=== PATIENT | male | born 1940 | race Caucasian/White ===

== ENCOUNTER 2016-11-24 13:16 | Inpatient (IN) | payer OTHER ==
[~2016-11-24] VITALS: Ht 177.8 cm; Wt 86.2 kg
[2016-11-24 13:16] VITALS: BP_SYST 173
[~2016-11-24 13:16] MED LIST: ATEN100T44 PO; CARB200T PO; HYDR2TAB34 PO; HYDR4TAB26 PO; LISI40TA4 PO; LYR50 PO; SIMV40TA5 PO; TRIA1TAB96 PO
[2016-11-24] MEDS ORDERED: ALBUTEROL SULFATE 0.083% 2.5 MG/3 ML VIAL.NEB IH ONE (13:45)
[2016-11-24] MEDS ORDERED: IPRATROPIUM BROM 0.5 MG/2.5 ML VIAL.NEB (ATROVENT) IH ONE (13:45)
[2016-11-24 14:00] LABS: BASOPHILS % (AUTO) 0.5 % (0.0-2.0); EOSINOPHILS # (AUTO) 0.1 K/uL (0.0-0.4); EOSINOPHILS % (AUTO) 0.7 % (0.0-4.0); HEMOGLOBIN 14.9 g/dL (14.0-18.0); LYMPHOCYTES # (AUTO) 1.5 K/uL (1.0-5.5); LYMPHOCYTES % (AUTO) 19.5 % (20.5-51.5); MEAN CORPUSCULAR HEMOGLOBIN 28 pg (27-31); MEAN CORPUSCULAR HGB CONC 33 % (32-36); MEAN CORPUSCULAR VOLUME 86 fL (79.0-98.0); MONOCYTES # (AUTO) 0.4 K/uL (0.0-1.0); MONOCYTES % (AUTO) 4.9 % (1.7-9.3); NEUTROPHILS # (AUTO) 5.6 K/uL (1.8-7.7); NEUTROPHILS % (AUTO) 74.4 % (40.0-70.0); PLATELET COUNT (AUTO) 228 K/uL (130-430); RED BLOOD CELL COUNT(AUTO) 5.32 MIL/uL (4.2-6.2); RED CELL DISTRIBUTION WIDTH 13.4 % (9.0-15.0); WHITE BLOOD COUNT (AUTO) 7.6 K/uL (4.8-10.8)
[2016-11-24 14:08] LABS: ANION GAP 8 (5-15); CALCIUM 8.7 mg/dL (8.4-11.0); CHLORIDE 102 mmol/L (98-107); CREATININE 1.24 mg/dL (0.55-1.30); GLUCOSE 117 mg/dL (70-99); POTASSIUM 3.5 mmol/L (3.5-5.1); SODIUM SERUM 135 mmol/L (136-145); UREA NITROGEN, BLOOD 14 mg/dL (8-21)
[2016-11-24 14:12] LABS: ABG TOTAL HEMOGLOBIN 15.7 G/dL (12.0-18.0); BLOOD GAS BASE EXCESS -0.2 mmol/L (-3.0-3.0); BLOOD GAS COHb% 0.8 % (0.5-1.5); BLOOD GAS HHB 6.5 % (0.0-6.0); BLOOD O2Hb% 92.3 % (94.0-97.0)
[2016-11-24 14:13] LABS: ALANINE AMINOTRANSFERASE 22 U/L (12-78); ALBUMIN 3.7 g/dL (3.4-4.8); ASPARTATE AMINOTRANSFERASE 15 U/L (10-37); TOTAL BILIRUBIN 0.5 mg/dL (0.0-1.0); TOTAL PROTEIN, SERUM 7.1 g/dL (6.4-8.3)
[2016-11-24] MEDS ORDERED: OMEP20TA20 PO (15:14)
[2016-11-24] MEDS ORDERED: HYDR-1189 PO (15:14)
[2016-11-24 15:42] VITALS: BP_SYST 156
[2016-11-24 16:00] VITALS: BP_SYST 141
[2016-11-24] MEDS ORDERED: HYDROcodone/ACETAMIN 5-325 MG TAB (NORCO/ VICODIN) PO PRN (19:30)
[2016-11-24] MEDS ORDERED: IPRATROPIUM BROM 0.5 MG/2.5 ML VIAL.NEB (ATROVENT) INH PRN (19:30)
[2016-11-24] MEDS ORDERED: ALBUTEROL SULFATE 0.083% 2.5 MG/3 ML VIAL.NEB INH PRN (19:30)
[2016-11-24 20:00] VITALS: BP_SYST 147
[2016-11-24 20:05] VITALS: BP_SYST 147
[2016-11-24] MEDS: methylPREDNISolone SOD SUCC/PF 62.5 MG/ML VIAL IVP SCH (21:26)
[2016-11-24] MEDS: cefTRIAXone 1 GM IVPB PREMIX 50 ML IV SCH (21:26)
[2016-11-24] MEDS: IPRATROPIUM BROM 0.5 MG/2.5 ML VIAL.NEB (ATROVENT) INH SCH (23:00)
[2016-11-24] MEDS: ALBUTEROL SULFATE 0.083% 2.5 MG/3 ML VIAL.NEB INH SCH (23:00)
[2016-11-25 00:37] VITALS: BP_SYST 121
[2016-11-25] MEDS: ALBUTEROL SULFATE 0.083% 2.5 MG/3 ML VIAL.NEB INH SCH ×4 (03:00→19:45)
[2016-11-25] MEDS: IPRATROPIUM BROM 0.5 MG/2.5 ML VIAL.NEB (ATROVENT) INH SCH ×4 (03:00→19:45)
[2016-11-25] MEDS: methylPREDNISolone SOD SUCC/PF 62.5 MG/ML VIAL IVP SCH ×3 (05:13→22:00)
[2016-11-25 08:24] VITALS: BP_SYST 127
[2016-11-25] MEDS: PANTOPRAZOLE SODIUM 40 MG TAB PO SCH (09:14)
[2016-11-25] MEDS: LISINOPRIL 20 MG TABLET PO SCH (09:15)
[2016-11-25] MEDS: ATENOLOL 50 MG TABLET (TENORMIN) PO SCH (09:15)
[2016-11-25 12:11] VITALS: BP_SYST 131
[2016-11-25 16:00] VITALS: BP_SYST 130
[2016-11-25 20:03] VITALS: BP_SYST 134
[2016-11-25] MEDS: cefTRIAXone 1 GM IVPB PREMIX 50 ML IV SCH (22:00)
[2016-11-26 00:45] VITALS: BP_SYST 92
[2016-11-26 04:32] VITALS: BP_SYST 118
[2016-11-26] MEDS: methylPREDNISolone SOD SUCC/PF 62.5 MG/ML VIAL IVP SCH ×2 (06:43→13:38)
[2016-11-26] MEDS: IPRATROPIUM BROM 0.5 MG/2.5 ML VIAL.NEB (ATROVENT) INH SCH ×3 (07:06→15:00)
[2016-11-26] MEDS: ALBUTEROL SULFATE 0.083% 2.5 MG/3 ML VIAL.NEB INH SCH ×3 (07:06→15:00)
[2016-11-26 08:01] VITALS: BP_SYST 140
[2016-11-26] MEDS: LISINOPRIL 20 MG TABLET PO SCH (08:45)
[2016-11-26] MEDS: PANTOPRAZOLE SODIUM 40 MG TAB PO SCH (08:45)
[2016-11-26] MEDS: ATENOLOL 50 MG TABLET (TENORMIN) PO SCH (08:46)
[2016-11-26 12:00] VITALS: BP_SYST 144
[2016-11-26] MEDS ORDERED: PRED20TA PO (13:51)
[2016-11-26] MEDS ORDERED: PRED10TA PO ×2 (13:52)
[2016-11-26] MEDS ORDERED: FLUT12AE5 IH (13:53)
[2016-11-26] MEDS ORDERED: TIOT18CA3 IH (13:54)
[2016-11-26 14:35] VITALS: BP_SYST 144
[2016-11-26 15:00] VITALS: BP_SYST 159
== END 2016-11-26 15:30 | disposition home or self-care (01) | DRG 192 ==
LOC: SED 13:16 → STU 15:17
PROVIDERS: ADMIT Internal Medicine Hospice and Palliative Medicine; ATTEND Internal Medicine Hospice and Palliative Medicine
DX: J44.1 Chronic obstructive pulmonary disease with (acute) exacerbation (principal); I10 Essential (primary) hypertension; F17.200 Nicotine dependence, unspecified, uncomplicated; E11.9 Type 2 diabetes mellitus without complications; E78.5 Hyperlipidemia, unspecified; Z86.73 Personal history of transient ischemic attack (TIA), and cerebral infarction without residual deficits; Z90.49 Acquired absence of other specified parts of digestive tract; I25.2 Old myocardial infarction; Z79.899 Other long term (current) drug therapy
CPT/HCPCS: 36415; 36600; 71010; 80053; 82803-TC; 83880; 84484; 85025; 85379; 85610-TC; 85730-TC; 93005; 94640; 94760; 99285; J0696; J2930; J7050

== ENCOUNTER 2018-01-28 02:29 | Emergency (ER) | payer OTHER ==
[~2018-01-28] VITALS: Ht 177.8 cm; Wt 83.0 kg
[~2018-01-28 02:29] MED LIST changes: +FLUT12AE5 IH; +HYDR-1189 PO; -HYDR2TAB34 PO; -HYDR4TAB26 PO; -LYR50 PO; +OMEP20TA20 PO; +PRED10TA PO; +PRED20TA PO; -SIMV40TA5 PO; +TIOT18CA3 IH; -TRIA1TAB96 PO
[2018-01-28 02:34] VITALS: BP_SYST 135
[2018-01-28] MEDS ORDERED: fentaNYL CITRATE/PF 100 MCG/2 ML AMP IM ONE (03:15)
[2018-01-28] MEDS ORDERED: LORazepam 2 MG/ML VIAL (FOR ER USE) IM ONE (03:15)
[2018-01-28 05:06] VITALS: BP_SYST 138
== END 2018-01-28 05:06 | disposition home or self-care (01) ==
LOC: SED 02:29
DX: G89.29 Other chronic pain (principal); G50.0 Trigeminal neuralgia; J44.9 Chronic obstructive pulmonary disease, unspecified; I10 Essential (primary) hypertension; E78.5 Hyperlipidemia, unspecified; Z79.899 Other long term (current) drug therapy
CPT/HCPCS: 93005; 96372; 99284; J2060; J3010

== ENCOUNTER 2018-04-17 12:58 | Emergency (ER) | payer OTHER ==
[~2018-04-17] VITALS: Ht 177.8 cm; Wt 85.7 kg
[~2018-04-17 12:58] MED LIST changes: +ATEN-168 PO; -ATEN100T44 PO
[2018-04-17 13:22] VITALS: BP_SYST 103
[2018-04-17] MEDS ORDERED: ONDANSETRON 4 MG ODT TAB PO ONE (13:45)
[2018-04-17] MEDS ORDERED: MORPHINE 4 MG/ML INJ. SYRINGE IM ONE (13:45)
[2018-04-17 14:34] VITALS: BP_SYST 116
== END 2018-04-17 14:34 | disposition home or self-care (01) ==
LOC: SED 12:58
DX: G89.29 Other chronic pain (principal); G50.0 Trigeminal neuralgia; R53.1 Weakness; J44.9 Chronic obstructive pulmonary disease, unspecified; I10 Essential (primary) hypertension; E78.5 Hyperlipidemia, unspecified; Z90.49 Acquired absence of other specified parts of digestive tract; Z79.899 Other long term (current) drug therapy
CPT/HCPCS: 96372; 99283; J2270; Q0162

== ENCOUNTER 2019-07-05 20:06 | Emergency (ER) | payer OTHER ==
[~2019-07-05] VITALS: Ht 177.8 cm; Wt 86.2 kg
[2019-07-05 20:29] VITALS: BP_SYST 117
--- NOTE | 2019-07-05 20:31 | NUR ---
Patient to ER bed 08 to gown for evaluation. Side rails up. Report given to ANTONI SPEARS
[2019-07-05] MEDS ORDERED: NACL 0.9% 1,000 ML IV ONE (20:46)
--- NOTE | 2019-07-05 20:47 | NUR ---
ER Dr. Tello at bedside examining patient.
--- NOTE | 2019-07-05 20:55 | NUR ---
Pt BIB family to ED C/O non-bloody, watery diarrhea for 5 days. He denies any alleviating or exacerbating factors. The patient states he had diarrhea 5 days ago but not 4 days ago but states diarrhea came back. Per patient, the patient had vomiting earlier this week 4 and 5 days ago but now has dry heaving. Per patient, his 4 year old baby had diarrhea before him VSS no s/s of acute distress. No other injuries and or complaints noted Resting on gurney rails up
[2019-07-05] MEDS ORDERED: ONDANSETRON HCL 4 MG/2 ML VIAL IVP ONE (21:00)
[2019-07-05 21:30] LABS: BASOPHILS % (AUTO) 0.5 % (0.0-2.0); EOSINOPHILS # (AUTO) 0.1 K/uL (0.0-0.4); EOSINOPHILS % (AUTO) 1.8 % (0.0-4.0); HEMATOCRIT 52.3 % (36-54); HEMOGLOBIN 18.1 g/dL (14.0-18.0); LYMPHOCYTES # (AUTO) 1.5 K/uL (1.0-5.5); MEAN CORPUSCULAR HEMOGLOBIN 30 pg (27-31); MEAN CORPUSCULAR HGB CONC 35 % (32-36); MEAN CORPUSCULAR VOLUME 88 fL (79.0-98.0); MONOCYTES % (AUTO) 12.7 % (1.7-9.3); PLATELET COUNT (AUTO) 248 K/uL (130-430); RED BLOOD CELL COUNT(AUTO) 5.97 MIL/uL (4.2-6.2); RED CELL DISTRIBUTION WIDTH 15.9 % (9.0-15.0); WHITE BLOOD COUNT (AUTO) 7.6 K/uL (4.8-10.8)
[2019-07-05 21:38] LABS: ANION GAP 14 (5-15); CALCIUM 8.1 mg/dL (8.4-11.0); CHLORIDE 97 mmol/L (98-107); CREATININE 1.28 mg/dL (0.55-1.30); GLUCOSE 96 mg/dL (70-99); SODIUM SERUM 135 mmol/L (136-145); UREA NITROGEN, BLOOD 24 mg/dL (8-21)
[2019-07-05 21:56] LABS: ALANINE AMINOTRANSFERASE 27 U/L (12-78); ALBUMIN 3.6 g/dL (3.4-4.8); ASPARTATE AMINOTRANSFERASE 19 U/L (10-37); TOTAL BILIRUBIN 0.4 mg/dL (0.0-1.0)
--- NOTE | 2019-07-05 22:06 | NUR ---
Patient up to restroom for bowel movement.
--- NOTE | 2019-07-05 22:14 | NUR ---
patient back to bed
[2019-07-05] MEDS ORDERED: POTASSIUM CHLORIDE 20 MEQ TAB.PRT.SR PO ONE (22:30)
[2019-07-05 23:00] VITALS: BP_SYST 117
--- NOTE | 2019-07-05 23:00 | NUR ---
Patient given written and verbal discharge instructions and verbalizes understanding. ER MD discussed with patient the results and treatment provided. Patient in stable condition. ID arm band removed. IV catheter removed intact and dressing applied, no active bleeding Rx of Zofran and Levaquin given. Patient educated on pain management and to follow up with PMD. Pain Scale 0/10 Opportunity for questions provided and answered. Medication side effect fact sheet provided.
== END 2019-07-05 23:00 | disposition home or self-care (01) ==
LOC: SED 20:06
DX: E87.6 Hypokalemia (principal); R19.7 Diarrhea, unspecified; R11.0 Nausea; I10 Essential (primary) hypertension; E78.00 Pure hypercholesterolemia, unspecified; J44.9 Chronic obstructive pulmonary disease, unspecified
CPT/HCPCS: 36415; 80053; 83605; 85025; 87040; 96365; 96375; 99283; J1956; J2405; J7030

== ENCOUNTER 2021-12-28 12:51 | Emergency (ER) | payer OTHER ==
[~2021-12-28] VITALS: Ht 177.8 cm; Wt 74.8 kg
[~2021-12-28 12:51] MED LIST changes: -HYDR-1189 PO; +HYDR-3919 PO; +LISI40TA13 PO; -LISI40TA4 PO
[2021-12-28 13:12] VITALS: BP_SYST 124
[2021-12-28 15:35] LABS: ANION GAP 8 (5-15); CALCIUM 7.8 mg/dL (8.4-11.0); CHLORIDE 105 mmol/L (98-107); CREATININE 1.52 mg/dL (0.55-1.30); GLUCOSE 129 mg/dL (70-99); SODIUM SERUM 142 mmol/L (136-145); UREA NITROGEN, BLOOD 33 mg/dL (8-21)
[2021-12-28 15:39] LABS: BASOPHILS % (AUTO) 0.4 % (0.0-2.0); EOSINOPHILS % (AUTO) 0.5 % (0.0-4.0); HEMATOCRIT 41.4 % (36-54); HEMOGLOBIN 13.8 g/dL (14.0-18.0); LYMPHOCYTES # (AUTO) 1.1 K/uL (1.0-5.5); LYMPHOCYTES % (AUTO) 30.2 % (20.5-51.5); MEAN CORPUSCULAR HEMOGLOBIN 28 pg (27-31); MEAN CORPUSCULAR HGB CONC 33 % (32-36); MEAN CORPUSCULAR VOLUME 83 fL (79.0-98.0); MONOCYTES # (AUTO) 0.3 K/uL (0.0-1.0); MONOCYTES % (AUTO) 7.4 % (1.7-9.3); NEUTROPHILS # (AUTO) 2.1 K/uL (1.8-7.7); NEUTROPHILS % (AUTO) 61.5 % (40.0-70.0); PLATELET COUNT (AUTO) 100 K/uL (130-430); RED BLOOD CELL COUNT(AUTO) 4.96 MIL/uL (4.2-6.2); RED CELL DISTRIBUTION WIDTH 33.2 % (9.0-15.0); WHITE BLOOD COUNT (AUTO) 3.5 K/uL (4.8-10.8)
[2021-12-28 15:47] LABS: ALANINE AMINOTRANSFERASE 48 U/L (12-78); ASPARTATE AMINOTRANSFERASE 18 U/L (10-37); TOTAL BILIRUBIN 0.4 mg/dL (0.0-1.0)
[2021-12-28 16:17] LABS: ERYTHROCYTE SEDIMENTATION RATE 7 MM/HR (0-15)
[2021-12-28 16:19] LABS: PROTHROMBIN TIME 10.4 SECS (9.5-12.5)
[2021-12-28 16:38] VITALS: BP_SYST 124
[2021-12-28 17:04] LABS: C-REACTIVE PROTEIN QUANT < 0.2 mg/dL (0-0.5)
== END 2021-12-28 16:38 | disposition home or self-care (01) ==
LOC: SED 12:51
DX: L60.8 Other nail disorders (principal); I10 Essential (primary) hypertension; J44.9 Chronic obstructive pulmonary disease, unspecified; Z88.8 Allergy status to other drugs, medicaments and biological substances; Z79.899 Other long term (current) drug therapy
CPT/HCPCS: 36415; 80053; 83605; 85025; 85610-TC; 85651-TC; 85730-TC; 86140; 99283

== ENCOUNTER 2023-06-30 18:44 | Inpatient (IN) | payer OTHER ==
[~2023-06-30] VITALS: Ht 177.8 cm; Wt 85.7 kg
[2023-06-30 18:54] VITALS: BP_SYST 145; PULSE 89; RESP 20; O2SAT 93
[2023-06-30] MEDS ORDERED: cefTRIAXone 1 GM IVPB PREMIX 50 ML IV ONE (20:00)
[2023-06-30] MEDS ORDERED: ASPIRIN 81 MG TAB.CHEW PO ONE (20:00)
[2023-06-30] MEDS ORDERED: DEXAMETHASONE SOD PHOSPHATE 4 MG/ML VIAL IVP ONE (20:00)
[2023-06-30 20:02] LABS: INFLUENZA TYPE A Negative (NEGATIVE)
[2023-06-30 20:13] LABS: COVID19 ANTIGEN SOFIA FIA POSITIVE (NEGATIVE); INFLUENZA TYPE B POSITIVE (NEGATIVE)
[2023-06-30] MEDS ORDERED: OSELTAMIVIR PHOSPHATE 75 MG CAPSULE PO ONE (20:15)
[2023-06-30 20:52] LABS: LYMPHOCYTES # (AUTO) 0.4 K/uL (1.0-5.5)
[2023-06-30 20:57] LABS: BASOPHILS # (AUTO) 0.1 K/uL (0.0-0.2); BASOPHILS % (AUTO) 0.6 % (0.0-2.0); HEMATOCRIT 51.9 % (36-54); HEMOGLOBIN 16.3 g/dL (14.0-18.0); LYMPHOCYTES % (AUTO) 2.8 % (20.5-51.5); MEAN CORPUSCULAR HEMOGLOBIN 24 pg (27-31); MEAN CORPUSCULAR HGB CONC 31 % (32-36); MEAN CORPUSCULAR VOLUME 77 fL (79.0-98.0); MONOCYTES # (AUTO) 0.4 K/uL (0.0-1.0); NEUTROPHILS % (AUTO) 93.6 % (40.0-70.0); PLATELET COUNT (AUTO) 519 K/uL (130-430); RED BLOOD CELL COUNT(AUTO) 6.73 MIL/uL (4.2-6.2); RED CELL DISTRIBUTION WIDTH 21.7 % (9.0-15.0); WHITE BLOOD COUNT (AUTO) 14.9 K/uL (4.8-10.8)
[2023-06-30] MEDS ORDERED: IPRATROPIUM/ALBUTEROL SULFATE 3 ML AMPUL.NEB (DUONEB) INH ONE (21:00)
[2023-06-30 21:04] LABS: ALANINE AMINOTRANSFERASE 30 U/L (12-78); ALBUMIN 3.2 g/dL (3.4-4.8); ANION GAP 12 (5-15); ASPARTATE AMINOTRANSFERASE 23 U/L (10-37); BILIRUBIN,DIRECT 0.3 mg/dL (0.0-0.3); CALCIUM 8.4 mg/dL (8.4-11.0); CARBON DIOXIDE 26 mmol/L (23-29); CHLORIDE 100 mmol/L (98-107); CREATININE 1.37 mg/dL (0.55-1.30); GLUCOSE 110 mg/dL (74-106); SODIUM SERUM 138 mmol/L (136-145); TOTAL BILIRUBIN 0.8 mg/dL (0.0-1.0); TOTAL PROTEIN, SERUM 6.7 g/dL (6.4-8.3); UREA NITROGEN, BLOOD 28 mg/dL (8-21)
[2023-06-30 21:06] LABS: POTASSIUM 2.8 mmol/L (3.5-5.1)
[2023-06-30] MEDS ORDERED: ONDANSETRON HCL 4 MG/2 ML VIAL IVP PRN (21:45)
[2023-06-30] MEDS ORDERED: NACL 0.9% 1,000 ML IV SCH (21:45)
[2023-06-30] MEDS ORDERED: ACETAMINOPHEN 325 MG TABLET PO PRN (21:45)
[2023-06-30] MEDS ORDERED: HYDROcodone/ACETAMIN 5-325 MG TAB (NORCO/ VICODIN) PO PRN (21:45)
[2023-06-30] MEDS ORDERED: ENOXAPARIN SODIUM 30 MG/0.3 ML SYRINGE SUBCUT ONE (22:00)
[2023-06-30] MEDS ORDERED: POTASSIUM CHLORIDE 20 MEQ TABLET.ER PO ONE (22:00)
[2023-06-30 23:30] VITALS: BP_SYST 145; PULSE 89; O2SAT 95
[2023-06-30] MEDS: ALBUTEROL SULFATE 0.083% 2.5 MG/3 ML VIAL.NEB INH SCH (23:40)
[2023-06-30 23:41] VITALS: PULSE 66
[2023-06-30 23:44] VITALS: O2SAT 98
[2023-06-30 23:45] VITALS: BP_SYST 113; PULSE 84; RESP 18; TEMP 98.6; O2SAT 93
[2023-07-01] VITALS (10 sets, daily range): BP systolic 82–119; PULSE 65–84; RESP 16–20; TEMP 95.8–98.6; O2SAT 88–96
[2023-07-01] MEDS: ALBUTEROL SULFATE 0.083% 2.5 MG/3 ML VIAL.NEB INH SCH ×6 (04:37→23:00)
[2023-07-01 06:39] LABS: ALANINE AMINOTRANSFERASE 25 U/L (12-78); ALBUMIN 3.1 g/dL (3.4-4.8); ANION GAP 15 (5-15); ASPARTATE AMINOTRANSFERASE 20 U/L (10-37); CALCIUM 8.9 mg/dL (8.4-11.0); CARBON DIOXIDE 25 mmol/L (23-29); CHLORIDE 100 mmol/L (98-107); CREATININE 1.63 mg/dL (0.55-1.30); GLUCOSE 169 mg/dL (74-106); SODIUM SERUM 140 mmol/L (136-145); TOTAL BILIRUBIN 0.6 mg/dL (0.0-1.0); TOTAL PROTEIN, SERUM 6.7 g/dL (6.4-8.3); UREA NITROGEN, BLOOD 28 mg/dL (8-21)
[2023-07-01 07:02] LABS: POTASSIUM 2.7 mmol/L (3.5-5.1)
[2023-07-01 07:15] LABS: HEMATOCRIT 51.7 % (36-54); HEMOGLOBIN 16.2 g/dL (14.0-18.0); MEAN CORPUSCULAR HEMOGLOBIN 24 pg (27-31); MEAN CORPUSCULAR HGB CONC 31 % (32-36); MEAN CORPUSCULAR VOLUME 77 fL (79.0-98.0); PLATELET COUNT (AUTO) 503 K/uL (130-430); RED BLOOD CELL COUNT(AUTO) 6.73 MIL/uL (4.2-6.2); RED CELL DISTRIBUTION WIDTH 21.7 % (9.0-15.0)
[2023-07-01] MEDS: DEXAMETHASONE SOD PHOSPHATE 4 MG/ML VIAL IVP SCH (09:44)
[2023-07-01] MEDS: ASPIRIN 81 MG TAB.CHEW PO SCH (09:44)
[2023-07-01] MEDS: OSELTAMIVIR PHOSPHATE 75 MG CAPSULE PO SCH ×2 (09:44→20:57)
[2023-07-01 10:00] LABS: ANISOCYTOSIS 1+; BAND % (MANUAL) 14 % (0-6); BASOPHILS % (MANUAL) 0 % (0-2); EOSINOPHILS % (MANUAL) 0 % (0-7); HYPOCHROMASIA 1+; LYMPHOCYTES % (MANUAL) 1 % (20-46); METAMYELOCYTES % 1 % (0-0); MONOCYTES % (MANUAL) 1 % (0-11)
[2023-07-01 10:01] LABS: PLATELET ESTIMATE INCREASED (ADEQUATE)
[2023-07-01] MEDS ORDERED: ASCORBIC ACID 500 MG TABLET PO ONE (10:30)
[2023-07-01] MEDS ORDERED: POTASSIUM CHLORIDE 40 MEQ in NS 250 ML IV ONE (11:00)
[2023-07-01] MEDS: NACL 0.9% 1,000 ML IV SCH (13:33)
[2023-07-01 16:27] LABS: BASOPHILS % (AUTO) 0.1 % (0.0-2.0); HEMATOCRIT 48.5 % (36-54); HEMOGLOBIN 15.3 g/dL (14.0-18.0); LYMPHOCYTES # (AUTO) 0.4 K/uL (1.0-5.5); LYMPHOCYTES % (AUTO) 2.4 % (20.5-51.5); MEAN CORPUSCULAR HEMOGLOBIN 24 pg (27-31); MEAN CORPUSCULAR HGB CONC 32 % (32-36); MEAN CORPUSCULAR VOLUME 76 fL (79.0-98.0); MONOCYTES # (AUTO) 0.3 K/uL (0.0-1.0); MONOCYTES % (AUTO) 1.6 % (1.7-9.3); NEUTROPHILS # (AUTO) 17.6 K/uL (1.8-7.7); NEUTROPHILS % (AUTO) 95.9 % (40.0-70.0); PLATELET COUNT (AUTO) 549 K/uL (130-430); RED BLOOD CELL COUNT(AUTO) 6.37 MIL/uL (4.2-6.2); RED CELL DISTRIBUTION WIDTH 21.5 % (9.0-15.0); WHITE BLOOD COUNT (AUTO) 18.3 K/uL (4.8-10.8)
[2023-07-01 16:37] LABS: ANION GAP 10 (5-15); CALCIUM 8.8 mg/dL (8.4-11.0); CARBON DIOXIDE 24 mmol/L (23-29); CHLORIDE 103 mmol/L (98-107); CREATININE 1.63 mg/dL (0.55-1.30); GLUCOSE 171 mg/dL (74-106); POTASSIUM 3.3 mmol/L (3.5-5.1); SODIUM SERUM 137 mmol/L (136-145); UREA NITROGEN, BLOOD 39 mg/dL (8-21)
[2023-07-01] MEDS ORDERED: TAMS-11 PO (18:05)
[2023-07-01] MEDS ORDERED: APIX5TAB PO ×2 (18:13→18:38)
[2023-07-01] MEDS ORDERED: CLOP75TA32 PO (18:19)
[2023-07-01] MEDS ORDERED: MONT-40 PO (18:24)
[2023-07-01] MEDS ORDERED: NEU300 PO (18:26)
[2023-07-01] MEDS ORDERED: FAMO20TA8 PO (18:27)
[2023-07-01] MEDS ORDERED: EZET10TA30 PO (18:40)
[2023-07-02] VITALS (12 sets, daily range): BP systolic 114–144; PULSE 72–89; RESP 16–20; TEMP 97.3–98.1; O2SAT 90–98
[2023-07-02] MEDS: NACL 0.9% 1,000 ML IV SCH ×2 (00:20→21:18)
[2023-07-02] MEDS: HYDROcodone/ACETAMIN 10-325 MG TAB PO PRN ×2 (00:20→21:15)
[2023-07-02] MEDS: ALBUTEROL SULFATE 0.083% 2.5 MG/3 ML VIAL.NEB INH SCH ×6 (03:00→23:15)
[2023-07-02 07:17] LABS: BASOPHILS % (AUTO) 0.1 % (0.0-2.0); HEMATOCRIT 49.4 % (36-54); HEMOGLOBIN 15.6 g/dL (14.0-18.0); LYMPHOCYTES # (AUTO) 0.5 K/uL (1.0-5.5); LYMPHOCYTES % (AUTO) 2.5 % (20.5-51.5); MEAN CORPUSCULAR HEMOGLOBIN 24 pg (27-31); MEAN CORPUSCULAR HGB CONC 32 % (32-36); MEAN CORPUSCULAR VOLUME 76 fL (79.0-98.0); MONOCYTES # (AUTO) 0.6 K/uL (0.0-1.0); MONOCYTES % (AUTO) 2.6 % (1.7-9.3); NEUTROPHILS % (AUTO) 94.8 % (40.0-70.0); PLATELET COUNT (AUTO) 575 K/uL (130-430); RED BLOOD CELL COUNT(AUTO) 6.46 MIL/uL (4.2-6.2); RED CELL DISTRIBUTION WIDTH 21.7 % (9.0-15.0); WHITE BLOOD COUNT (AUTO) 22.1 K/uL (4.8-10.8)
[2023-07-02 07:43] LABS: ALANINE AMINOTRANSFERASE 26 U/L (12-78); ALBUMIN 2.9 g/dL (3.4-4.8); ANION GAP 13 (5-15); ASPARTATE AMINOTRANSFERASE 23 U/L (10-37); CALCIUM 8.9 mg/dL (8.4-11.0); CARBON DIOXIDE 23 mmol/L (23-29); CHLORIDE 104 mmol/L (98-107); CREATININE 1.32 mg/dL (0.55-1.30); GLUCOSE 127 mg/dL (74-106); SODIUM SERUM 140 mmol/L (136-145); TOTAL BILIRUBIN 0.5 mg/dL (0.0-1.0); TOTAL PROTEIN, SERUM 6.2 g/dL (6.4-8.3); UREA NITROGEN, BLOOD 36 mg/dL (8-21)
[2023-07-02 09:05] LABS: BILIRUBIN,URINE NEGATIVE (NEGATIVE); BLOOD, URINE 2+ (NEGATIVE); CLARITY/URINE SL CLOUDY (CLEAR); COLOR,URINE YELLOW (YELLOW); GLUCOSE,URINE NEGATIVE (NEGATIVE); KETONES,URINE NEGATIVE (NEGATIVE); LEUKOCYTE ESTERASE ,URINE NEGATIVE (NEGATIVE); NITRITE, URINE NEGATIVE (NEGATIVE); PROTEIN URINE NEGATIVE (NEGATIVE); UROBILINOGEN,URINE 0.2 (0.2-1.0)
[2023-07-02] MEDS: cefTRIAXone 1 GM in D5W 50 ML IV SCH (09:19)
[2023-07-02] MEDS: ASPIRIN 81 MG TAB.CHEW PO SCH (09:39)
[2023-07-02] MEDS: DEXAMETHASONE SOD PHOSPHATE 4 MG/ML VIAL IVP SCH (09:40)
[2023-07-02] MEDS: ASCORBIC ACID 500 MG TABLET PO SCH (09:40)
[2023-07-02] MEDS: OSELTAMIVIR PHOSPHATE 75 MG CAPSULE PO SCH ×2 (09:40→21:15)
[2023-07-02 09:49] LABS: BACTERIA,URINE RARE /HPF (None Seen); WBC,URINE 0-3 /HPF (0-3)
[2023-07-02] MEDS ORDERED: KCL 20 mEq in 100 mL (PREMIX) 200 ML IV ONE (11:00)
[2023-07-02] MEDS: AZITHROMYCIN 250 MG in NS 250 ML IV SCH (11:24)
[2023-07-02] MEDS ORDERED: FAMOTIDINE 20 MG TABLET PO ONE (11:45)
[2023-07-02] MEDS ORDERED: TAMSULOSIN HCL 0.4 MG CAP PO ONE (11:45)
[2023-07-02] MEDS ORDERED: GABAPENTIN 300 MG CAPSULE PO ONE (11:45)
[2023-07-02] MEDS ORDERED: APIXABAN 2.5 MG TABLET PO ONE (11:45)
[2023-07-02] MEDS: EZETIMIBE 10 MG TABLET PO SCH (16:41)
[2023-07-02 17:50] LABS: URINE SODIUM, RANDOM 37 mmol/L (40-220)
[2023-07-02] MEDS: APIXABAN 2.5 MG TABLET PO SCH (21:16)
[2023-07-03] VITALS (10 sets, daily range): BP systolic 106–135; PULSE 73–84; RESP 17–19; TEMP 97.1–98.6; O2SAT 90–97
[2023-07-03] MEDS: ALBUTEROL SULFATE 0.083% 2.5 MG/3 ML VIAL.NEB INH SCH ×5 (03:00→20:05)
[2023-07-03 04:31] LABS: BASOPHILS % (AUTO) 0.1 % (0.0-2.0); HEMATOCRIT 48.2 % (36-54); HEMOGLOBIN 15.1 g/dL (14.0-18.0); LYMPHOCYTES # (AUTO) 0.2 K/uL (1.0-5.5); LYMPHOCYTES % (AUTO) 1.2 % (20.5-51.5); MEAN CORPUSCULAR HEMOGLOBIN 24 pg (27-31); MEAN CORPUSCULAR HGB CONC 31 % (32-36); MEAN CORPUSCULAR VOLUME 77 fL (79.0-98.0); MONOCYTES # (AUTO) 0.4 K/uL (0.0-1.0); MONOCYTES % (AUTO) 1.9 % (1.7-9.3); NEUTROPHILS # (AUTO) 19.4 K/uL (1.8-7.7); NEUTROPHILS % (AUTO) 96.8 % (40.0-70.0); PLATELET COUNT (AUTO) 577 K/uL (130-430); RED BLOOD CELL COUNT(AUTO) 6.26 MIL/uL (4.2-6.2); RED CELL DISTRIBUTION WIDTH 21.7 % (9.0-15.0); WHITE BLOOD COUNT (AUTO) 20.1 K/uL (4.8-10.8)
[2023-07-03 04:49] LABS: ALANINE AMINOTRANSFERASE 26 U/L (12-78); ALBUMIN 2.7 g/dL (3.4-4.8); ANION GAP 11 (5-15); ASPARTATE AMINOTRANSFERASE 21 U/L (10-37); CALCIUM 8.7 mg/dL (8.4-11.0); CARBON DIOXIDE 25 mmol/L (23-29); CHLORIDE 101 mmol/L (98-107); CREATININE 1.21 mg/dL (0.55-1.30); GLUCOSE 108 mg/dL (74-106); POTASSIUM 3.3 mmol/L (3.5-5.1); SODIUM SERUM 137 mmol/L (136-145); TOTAL BILIRUBIN 0.5 mg/dL (0.0-1.0); TOTAL PROTEIN, SERUM 5.9 g/dL (6.4-8.3); UREA NITROGEN, BLOOD 30 mg/dL (8-21)
[2023-07-03] MEDS: NACL 0.9% 1,000 ML IV SCH ×3 (05:55→18:50)
[2023-07-03] MEDS: DEXAMETHASONE SOD PHOSPHATE 4 MG/ML VIAL IVP SCH (09:36)
[2023-07-03] MEDS: ASCORBIC ACID 500 MG TABLET PO SCH (09:36)
[2023-07-03] MEDS: FAMOTIDINE 20 MG TABLET PO SCH (09:37)
[2023-07-03] MEDS: GABAPENTIN 300 MG CAPSULE PO SCH (09:37)
[2023-07-03] MEDS: TAMSULOSIN HCL 0.4 MG CAP PO SCH (09:37)
[2023-07-03] MEDS: OSELTAMIVIR PHOSPHATE 75 MG CAPSULE PO SCH ×2 (09:37→20:53)
[2023-07-03] MEDS: cefTRIAXone 1 GM in D5W 50 ML IV SCH (09:38)
[2023-07-03] MEDS: APIXABAN 2.5 MG TABLET PO SCH (09:40)
[2023-07-03] MEDS: AZITHROMYCIN 250 MG in NS 250 ML IV SCH (12:26)
[2023-07-03 14:40] LABS: INR 1.3 (0.80-1.20); PROTHROMBIN TIME 13.1 SECS (9.5-12.5)
[2023-07-03] MEDS: EZETIMIBE 10 MG TABLET PO SCH (17:23)
[2023-07-03] MEDS: HYDROcodone/ACETAMIN 10-325 MG TAB PO PRN (20:54)
[2023-07-03] MEDS ORDERED: APIXABAN 2.5 MG TABLET PO SCH (21:00)
[2023-07-04 00:32] VITALS: BP_SYST 110; PULSE 72; RESP 19; TEMP 97.8; O2SAT 94
[2023-07-04 03:30] VITALS: O2SAT 93
[2023-07-04] MEDS: ALBUTEROL SULFATE 0.083% 2.5 MG/3 ML VIAL.NEB INH SCH ×3 (03:37→11:48)
[2023-07-04 05:35] LABS: BASOPHILS % (AUTO) 0.1 % (0.0-2.0); HEMATOCRIT 49.4 % (36-54); HEMOGLOBIN 15.6 g/dL (14.0-18.0); LYMPHOCYTES # (AUTO) 0.4 K/uL (1.0-5.5); LYMPHOCYTES % (AUTO) 2.5 % (20.5-51.5); MEAN CORPUSCULAR HEMOGLOBIN 24 pg (27-31); MEAN CORPUSCULAR HGB CONC 32 % (32-36); MEAN CORPUSCULAR VOLUME 77 fL (79.0-98.0); MONOCYTES # (AUTO) 0.4 K/uL (0.0-1.0); MONOCYTES % (AUTO) 2.6 % (1.7-9.3); NEUTROPHILS # (AUTO) 13.9 K/uL (1.8-7.7); PLATELET COUNT (AUTO) 540 K/uL (130-430); RED BLOOD CELL COUNT(AUTO) 6.43 MIL/uL (4.2-6.2); RED CELL DISTRIBUTION WIDTH 22.3 % (9.0-15.0); WHITE BLOOD COUNT (AUTO) 14.7 K/uL (4.8-10.8)
[2023-07-04 06:05] LABS: ALANINE AMINOTRANSFERASE 27 U/L (12-78); ALBUMIN 2.6 g/dL (3.4-4.8); ANION GAP 10 (5-15); ASPARTATE AMINOTRANSFERASE 21 U/L (10-37); CALCIUM 8.9 mg/dL (8.4-11.0); CARBON DIOXIDE 26 mmol/L (23-29); CHLORIDE 104 mmol/L (98-107); CREATININE 1.07 mg/dL (0.55-1.30); GLUCOSE 111 mg/dL (74-106); POTASSIUM 3.3 mmol/L (3.5-5.1); SODIUM SERUM 140 mmol/L (136-145); TOTAL BILIRUBIN 0.6 mg/dL (0.0-1.0); UREA NITROGEN, BLOOD 30 mg/dL (8-21)
[2023-07-04] MEDS: NACL 0.9% 1,000 ML IV SCH ×2 (06:42→11:07)
[2023-07-04 07:18] LABS: NEUTROPHILS % (AUTO) 94.8 % (40.0-70.0)
[2023-07-04 08:00] VITALS: BP_SYST 144; PULSE 79; RESP 16; TEMP 98; O2SAT 92
[2023-07-04] MEDS: cefTRIAXone 1 GM in D5W 50 ML IV SCH (10:36)
[2023-07-04] MEDS: OSELTAMIVIR PHOSPHATE 75 MG CAPSULE PO SCH (10:37)
[2023-07-04] MEDS: ASCORBIC ACID 500 MG TABLET PO SCH (10:37)
[2023-07-04] MEDS: GABAPENTIN 300 MG CAPSULE PO SCH (10:37)
[2023-07-04] MEDS: FAMOTIDINE 20 MG TABLET PO SCH (10:37)
[2023-07-04] MEDS: TAMSULOSIN HCL 0.4 MG CAP PO SCH (10:37)
[2023-07-04] MEDS: AZITHROMYCIN 250 MG in NS 250 ML IV SCH (11:06)
[2023-07-04 11:40] VITALS: O2SAT 92
[2023-07-04] MEDS ORDERED: AMOX-423 PO (12:05)
[2023-07-04] MEDS ORDERED: ASC500 PO (12:05)
[2023-07-04] MEDS ORDERED: OSEL75CA PO (12:05)
[2023-07-04 12:43] VITALS: BP_SYST 111; PULSE 75; RESP 18; TEMP 97.7; O2SAT 97
[2023-07-04 15:33] VITALS: BP_SYST 144; PULSE 79; RESP 16; TEMP 98; O2SAT 94
[2023-07-04] MEDS ORDERED: APIX2.5T PO (16:00)
== END 2023-07-04 16:10 | disposition home health service (06) | DRG 177 ==
LOC: SED 18:44 → STU 21:44
PROVIDERS: ADMIT Family Medicine; ATTEND Family Medicine
PROC: XW043E5 Introduction of Remdesivir Anti-infective into Central Vein, Percutaneous Approach, New Technology Group 5 (ICD-10-PCS; principal; 2023-07-02)
DX: U07.1 COVID-19 (principal); J96.01 Acute respiratory failure with hypoxia; N17.0 Acute kidney failure with tubular necrosis; E44.1 Mild protein-calorie malnutrition; I25.10 Atherosclerotic heart disease of native coronary artery without angina pectoris; E87.6 Hypokalemia; D75.839 Thrombocytosis, unspecified; D72.829 Elevated white blood cell count, unspecified; E86.9 Volume depletion, unspecified; F17.200 Nicotine dependence, unspecified, uncomplicated; R58 Hemorrhage, not elsewhere classified; J10.1 Influenza due to other identified influenza virus with other respiratory manifestations; Z91.09 Other allergy status, other than to drugs and biological substances; Z79.899 Other long term (current) drug therapy; Z79.891 Long term (current) use of opiate analgesic; Z68.27 Body mass index [BMI] 27.0-27.9, adult
CPT/HCPCS: 36415; 71045; 80048; 80053; 80076; 81000; 81001; 81015; 82570; 83880; 84302; 84484; 85007; 85025; 85027; 85610-TC; 85730-TC; 87040; 93005; 94640; 94760; 96365; 96372; 96375; 97110-GP; 97116-GP; 97163-GP; 97530-GP; 99285; G0378; G9035; J0456; J0696; J1100; J1650; J3480; J7050; J7060

== ENCOUNTER 2024-02-03 05:06 | Emergency (ER) | payer OTHER ==
[~2024-02-03] VITALS: Ht 177.8 cm; Wt 90.7 kg
[~2024-02-03 05:06] MED LIST changes: +AMOX-423 PO; +APIX2.5T PO; +ASC500 PO; -CARB200T PO; +EZET10TA30 PO; +FAMO20TA8 PO; -HYDR-3919 PO; +NEU300 PO; -OMEP20TA20 PO; +OSEL75CA PO; -PRED10TA PO; -PRED20TA PO; +TAMS-11 PO
[2024-02-03 05:10] VITALS: BP_SYST 153; PULSE 77; RESP 18; TEMP 97.5; O2SAT 92
[2024-02-03] MEDS: HYDROcodone/ACETAMIN 5-325 MG TAB (NORCO/ VICODIN) PO ONE (05:41)
[2024-02-03] MEDS ORDERED: HYDR-3917 PO (06:17)
[2024-02-03] MEDS ORDERED: LIDO1ADH71 TP (06:17)
[2024-02-03] MEDS: MORPHINE 4 MG INJ. 4 MG/ML VIAL IM ONE (06:35)
[2024-02-03] MEDS: LIDOCAINE PATCH 5% 1 EA TP ONE (06:35)
[2024-02-03 08:25] VITALS: BP_SYST 121; PULSE 67; RESP 20; TEMP 98; O2SAT 94
== END 2024-02-03 08:28 | disposition home or self-care (01) ==
LOC: SED 05:06
DX: S51.012A Laceration without foreign body of left elbow, initial encounter (principal); S51.011A Laceration without foreign body of right elbow, initial encounter; S20.229A Contusion of unspecified back wall of thorax, initial encounter; R51.9 Headache, unspecified; J44.9 Chronic obstructive pulmonary disease, unspecified; I10 Essential (primary) hypertension; E78.5 Hyperlipidemia, unspecified; Z98.61 Coronary angioplasty status; Z79.899 Other long term (current) drug therapy; Z79.2 Long term (current) use of antibiotics; Z91.040 Latex allergy status; W17.89XA Other fall from one level to another, initial encounter; Y93.89 Activity, other specified; Y92.89 Other specified places as the place of occurrence of the external cause; Y99.8 Other external cause status
CPT/HCPCS: 99285; 70450; 72128; 96372; J2270

== ENCOUNTER 2024-02-08 15:22 | Inpatient (IN) | payer OTHER ==
[~2024-02-08] VITALS: Ht 177.8 cm; Wt 88.5 kg
[2024-02-08 15:22] VITALS: BP_SYST 132; PULSE 101; RESP 19; TEMP 101.7; TEMP 97.3; O2SAT 84
[~2024-02-08 15:22] MED LIST changes: +HYDR-3917 PO; +LIDO1ADH71 TP
[2024-02-08 16:12] LABS: HEMATOCRIT 51.3 % (36-54); HEMOGLOBIN 16.4 g/dL (14.0-18.0); MEAN CORPUSCULAR HEMOGLOBIN 23 pg (27-31); MEAN CORPUSCULAR HGB CONC 32 % (32-36); MEAN CORPUSCULAR VOLUME 71 fL (79.0-98.0); PLATELET COUNT (AUTO) 702 K/uL (130-430); RED BLOOD CELL COUNT(AUTO) 7.28 MIL/uL (4.2-6.2); RED CELL DISTRIBUTION WIDTH 24.1 % (9.0-15.0); WHITE BLOOD COUNT (AUTO) 12.9 K/uL (4.8-10.8)
[2024-02-08 16:27] LABS: INR 1.2 (0.80-1.20); PROTHROMBIN TIME 12.3 SECS (9.5-12.5)
[2024-02-08 16:33] LABS: ANION GAP 11 (5-15); CALCIUM 8.7 mg/dL (8.4-11.0); CARBON DIOXIDE 25 mmol/L (23-29); CHLORIDE 105 mmol/L (98-107); CREATINE KINASE, TOTAL 39 U/L (39-308); CREATININE 1.46 mg/dL (0.55-1.30); GLUCOSE 128 mg/dL (74-106); POTASSIUM 3.5 mmol/L (3.5-5.1); SODIUM SERUM 141 mmol/L (136-145); UREA NITROGEN, BLOOD 25 mg/dL (8-21)
[2024-02-08 16:36] LABS: ANISOCYTOSIS 2+; BAND % (MANUAL) 15 % (0-6); BASOPHILS % (MANUAL) 0 % (0-2); EOSINOPHILS % (MANUAL) 0 % (0-7); LYMPHOCYTES % (MANUAL) 5 % (20-46); MONOCYTES % (MANUAL) 3 % (0-11)
[2024-02-08 16:37] LABS: OVALOCYTES FEW; POLYCHROMASIA 1+
[2024-02-08 16:38] LABS: PLATELET ESTIMATE INCREASED (ADEQUATE)
[2024-02-08] MEDS ORDERED: cefTRIAXone 1 GM VIAL ONE (17:42)
[2024-02-08] MEDS: cefTRIAXone 1 GM in D5W 50 ML IV ONE (17:50)
[2024-02-08] MEDS: HYDROcodone/ACETAMIN 5-325 MG TAB (NORCO/ VICODIN) PO ONE (18:34)
[2024-02-08 19:37] LABS: BILIRUBIN,URINE NEGATIVE (NEGATIVE); BLOOD, URINE 2+ (NEGATIVE); CLARITY/URINE CLEAR (CLEAR); COLOR,URINE YELLOW (YELLOW); GLUCOSE,URINE NEGATIVE (NEGATIVE); KETONES,URINE NEGATIVE (NEGATIVE); LEUKOCYTE ESTERASE ,URINE NEGATIVE (NEGATIVE); NITRITE, URINE NEGATIVE (NEGATIVE); PROTEIN URINE NEGATIVE (NEGATIVE)
[2024-02-08 19:54] LABS: BACTERIA,URINE FEW /HPF (None Seen); WBC,URINE 0-3 /HPF (0-3)
[2024-02-08 20:53] VITALS: BP_SYST 103; PULSE 84; RESP 20; TEMP 97.5
[2024-02-08 21:00] VITALS: BP_SYST 103; PULSE 84; O2SAT 96
[2024-02-08] MEDS ORDERED: NALOXONE HCL 0.4 MG/ML AMP (NARCAN) IVP PRN ×2 (22:15)
[2024-02-08] MEDS ORDERED: NON-FORMULARY MEDICATION (Lidocaine (Lidocaine Pain Relief) 1 PATCH) TP PRN (22:15)
[2024-02-08] MEDS ORDERED: ONDANSETRON HCL 4 MG/2 ML VIAL IVP PRN (22:15)
[2024-02-08] MEDS ORDERED: IPRATROPIUM BROM 0.5 MG/2.5 ML VIAL.NEB (ATROVENT) INH PRN (22:15)
[2024-02-08] MEDS ORDERED: ACETAMINOPHEN 325 MG TABLET PO PRN (22:15)
[2024-02-08] MEDS ORDERED: ALBUTEROL SULFATE 0.083% 2.5 MG/3 ML VIAL.NEB INH PRN (22:15)
[2024-02-08] MEDS ORDERED: LORazepam 2 MG/ML VIAL IVP PRN (22:15)
[2024-02-08] MEDS ORDERED: cefTRIAXone 1 GM IVPB PREMIX 50 ML IV SCH (23:30)
[2024-02-09] MEDS: cefTRIAXone 1 GM IVPB PREMIX 0 ML IV ONE (00:37)
[2024-02-09] MEDS: HYDROcodone/ACETAMIN 5-325 MG TAB (NORCO/ VICODIN) PO PRN (02:29)
[2024-02-09 08:00] VITALS: BP_SYST 130; PULSE 66; RESP 18; TEMP 98.2; O2SAT 96
[2024-02-09] MEDS: HYDROcodone/ACETAMIN 5-325 MG TAB (NORCO/ VICODIN) PO ONE (08:16)
[2024-02-09 08:45] LABS: BASOPHILS % (AUTO) 0.3 % (0.0-2.0); EOSINOPHILS # (AUTO) 0.1 K/uL (0.0-0.4); EOSINOPHILS % (AUTO) 0.4 % (0.0-4.0); HEMATOCRIT 46.4 % (36-54); HEMOGLOBIN 14.9 g/dL (14.0-18.0); LYMPHOCYTES # (AUTO) 0.6 K/uL (1.0-5.5); LYMPHOCYTES % (AUTO) 4.1 % (20.5-51.5); MEAN CORPUSCULAR HEMOGLOBIN 23 pg (27-31); MEAN CORPUSCULAR HGB CONC 32 % (32-36); MEAN CORPUSCULAR VOLUME 70 fL (79.0-98.0); MONOCYTES # (AUTO) 0.6 K/uL (0.0-1.0); MONOCYTES % (AUTO) 4.2 % (1.7-9.3); NEUTROPHILS # (AUTO) 13.5 K/uL (1.8-7.7); PLATELET COUNT (AUTO) 635 K/uL (130-430); WHITE BLOOD COUNT (AUTO) 14.9 K/uL (4.8-10.8)
[2024-02-09 08:55] LABS: ALANINE AMINOTRANSFERASE 158 U/L (12-78); ALBUMIN 2.5 g/dL (3.4-4.8); ANION GAP 9 (5-15); ASPARTATE AMINOTRANSFERASE 167 U/L (10-37); CALCIUM 8.7 mg/dL (8.4-11.0); CARBON DIOXIDE 27 mmol/L (23-29); CHLORIDE 106 mmol/L (98-107); CREATININE 1.34 mg/dL (0.55-1.30); GLUCOSE 88 mg/dL (74-106); PHOSPHORUS 3.3 mg/dL (2.7-4.5); POTASSIUM 3.4 mmol/L (3.5-5.1); SODIUM SERUM 142 mmol/L (136-145); TOTAL BILIRUBIN 1.7 mg/dL (0.0-1.0); TOTAL PROTEIN, SERUM 6.3 g/dL (6.4-8.3); UREA NITROGEN, BLOOD 23 mg/dL (8-21)
[2024-02-09 09:00] VITALS: O2SAT 94
[2024-02-09] MEDS ORDERED: SALMETEROL IH SCH (09:00)
[2024-02-09] MEDS ORDERED: OSELTAMIVIR PHOSPHATE 75 MG CAPSULE PO SCH (09:00)
[2024-02-09] MEDS ORDERED: AMOXICILLIN/CLAVULANATE POTASSIUM 500 MG TABLET PO SCH (09:00)
[2024-02-09] MEDS ORDERED: TIOTROPIUM BROMIDE 18 mcg/INHALATION (CAPSULE) IH SCH (09:00)
[2024-02-09] MEDS ORDERED: FLUTICASONE IH SCH (09:00)
[2024-02-09] MEDS: TAMSULOSIN HCL 0.4 MG CAP PO SCH (09:03)
[2024-02-09] MEDS: NORMAL SALINE 5 ML DISP.SYRIN IVF SCH (09:03)
[2024-02-09] MEDS: ATENOLOL 50 MG TABLET (TENORMIN) PO SCH (09:04)
[2024-02-09] MEDS: ASCORBIC ACID 500 MG TABLET PO SCH (09:05)
[2024-02-09] MEDS: FAMOTIDINE 20 MG TABLET PO SCH (09:05)
[2024-02-09] MEDS: APIXABAN 2.5 MG TABLET PO SCH (09:06)
[2024-02-09] MEDS: cefTRIAXone 1 GM IVPB PREMIX 50 ML IV SCH (10:42)
[2024-02-09 11:11] VITALS: BP_SYST 128; PULSE 72; RESP 20; TEMP 98.2; O2SAT 97
[2024-02-09] MEDS: HYDROcodone/ACETAMIN 10-325 MG TAB PO PRN (14:24)
[2024-02-09 15:47] VITALS: BP_SYST 116; PULSE 58; RESP 18; TEMP 97.8; O2SAT 94
[2024-02-09 17:47] VITALS: O2SAT 94
[2024-02-09] MEDS: EZETIMIBE 10 MG TABLET PO SCH (18:13)
[2024-02-09 20:00] VITALS: BP_SYST 144; PULSE 60; RESP 18; TEMP 98; O2SAT 93
[2024-02-09] MEDS: GABAPENTIN 300 MG CAPSULE PO SCH (21:48)
[2024-02-09] MEDS: lisinopriL 20 MG TABLET PO SCH (21:48)
[2024-02-10] VITALS: BP_SYST 129; PULSE 58; RESP 18; TEMP 98.2; O2SAT 92
[2024-02-10 05:07] LABS: ERYTHROCYTE SEDIMENTATION RATE 24 MM/HR (0-15)
[2024-02-10 05:23] LABS: BASOPHILS # (AUTO) 0.1 K/uL (0.0-0.2); BASOPHILS % (AUTO) 0.4 % (0.0-2.0); EOSINOPHILS # (AUTO) 0.2 K/uL (0.0-0.4); EOSINOPHILS % (AUTO) 0.9 % (0.0-4.0); HEMATOCRIT 50.5 % (36-54); HEMOGLOBIN 15.9 g/dL (14.0-18.0); LYMPHOCYTES % (AUTO) 5.7 % (20.5-51.5); MEAN CORPUSCULAR HEMOGLOBIN 22 pg (27-31); MEAN CORPUSCULAR HGB CONC 31 % (32-36); MEAN CORPUSCULAR VOLUME 70 fL (79.0-98.0); MONOCYTES # (AUTO) 0.7 K/uL (0.0-1.0); MONOCYTES % (AUTO) 3.9 % (1.7-9.3); NEUTROPHILS # (AUTO) 15.5 K/uL (1.8-7.7); PLATELET COUNT (AUTO) 723 K/uL (130-430); RED CELL DISTRIBUTION WIDTH 24.7 % (9.0-15.0); WHITE BLOOD COUNT (AUTO) 17.3 K/uL (4.8-10.8)
[2024-02-10 05:50] LABS: ANION GAP 10 (5-15); CARBON DIOXIDE 26 mmol/L (23-29); CHLORIDE 103 mmol/L (98-107); CREATININE 1.36 mg/dL (0.55-1.30); GLUCOSE 77 mg/dL (74-106); PHOSPHORUS 3.7 mg/dL (2.7-4.5); POTASSIUM 3.3 mmol/L (3.5-5.1); SODIUM SERUM 139 mmol/L (136-145); UREA NITROGEN, BLOOD 24 mg/dL (8-21)
[2024-02-10 07:40] VITALS: BP_SYST 101; PULSE 53; RESP 16; TEMP 97.3; O2SAT 90
[2024-02-10 07:42] LABS: NEUTROPHILS % (AUTO) 89.1 % (40.0-70.0)
[2024-02-10 09:35] VITALS: O2SAT 95
[2024-02-10 12:53] VITALS: BP_SYST 115; PULSE 55; RESP 17; TEMP 97.8; O2SAT 97
[2024-02-10] MEDS: POTASSIUM CHLORIDE 20 MEQ/PKT PACKET PO ONE (15:27)
[2024-02-10 16:15] VITALS: BP_SYST 107; PULSE 84; RESP 16; TEMP 97.5; O2SAT 98
[2024-02-10 20:00] VITALS: BP_SYST 104; PULSE 54; RESP 16; TEMP 97.6; O2SAT 98
[2024-02-11] VITALS (8 sets, daily range): BP systolic 104–124; PULSE 50–60; RESP 16–18; TEMP 96.4–97.9; O2SAT 92–98
[2024-02-11 06:55] LABS: BASOPHILS # (AUTO) 0.1 K/uL (0.0-0.2); BASOPHILS % (AUTO) 0.6 % (0.0-2.0); EOSINOPHILS # (AUTO) 0.2 K/uL (0.0-0.4); EOSINOPHILS % (AUTO) 1.4 % (0.0-4.0); HEMATOCRIT 47.5 % (36-54); LYMPHOCYTES # (AUTO) 0.9 K/uL (1.0-5.5); LYMPHOCYTES % (AUTO) 7.4 % (20.5-51.5); MEAN CORPUSCULAR HEMOGLOBIN 22 pg (27-31); MEAN CORPUSCULAR HGB CONC 32 % (32-36); MEAN CORPUSCULAR VOLUME 71 fL (79.0-98.0); MONOCYTES # (AUTO) 0.8 K/uL (0.0-1.0); MONOCYTES % (AUTO) 6.1 % (1.7-9.3); NEUTROPHILS # (AUTO) 10.9 K/uL (1.8-7.7); PLATELET COUNT (AUTO) 726 K/uL (130-430); RED BLOOD CELL COUNT(AUTO) 6.72 MIL/uL (4.2-6.2); RED CELL DISTRIBUTION WIDTH 24.6 % (9.0-15.0); WHITE BLOOD COUNT (AUTO) 12.8 K/uL (4.8-10.8)
[2024-02-11 07:09] LABS: ANION GAP 10 (5-15); CALCIUM 8.7 mg/dL (8.4-11.0); CARBON DIOXIDE 28 mmol/L (23-29); CHLORIDE 103 mmol/L (98-107); CREATININE 1.34 mg/dL (0.55-1.30); GLUCOSE 87 mg/dL (74-106); PHOSPHORUS 3.3 mg/dL (2.7-4.5); POTASSIUM 3.3 mmol/L (3.5-5.1); SODIUM SERUM 141 mmol/L (136-145); UREA NITROGEN, BLOOD 23 mg/dL (8-21)
[2024-02-11 07:33] LABS: ERYTHROCYTE SEDIMENTATION RATE 43 MM/HR (0-15)
[2024-02-11 07:38] LABS: NEUTROPHILS % (AUTO) 84.5 % (40.0-70.0)
[2024-02-11] MEDS ORDERED: CIPR250T4 PO (12:35)
[2024-02-11] MEDS: POTASSIUM CHLORIDE 20 MEQ TABLET.ER PO ONE (18:49)
[2024-02-12 00:11] VITALS: BP_SYST 109; PULSE 50; RESP 14; TEMP 97.9; O2SAT 94
[2024-02-12 08:00] VITALS: BP_SYST 130; PULSE 51; RESP 18; TEMP 98.1; O2SAT 93
[2024-02-12 08:01] LABS: ERYTHROCYTE SEDIMENTATION RATE 36 MM/HR (0-15)
[2024-02-12 08:05] LABS: BASOPHILS # (AUTO) 0.1 K/uL (0.0-0.2); BASOPHILS % (AUTO) 0.9 % (0.0-2.0); EOSINOPHILS # (AUTO) 0.2 K/uL (0.0-0.4); HEMATOCRIT 46.7 % (36-54); HEMOGLOBIN 14.9 g/dL (14.0-18.0); LYMPHOCYTES % (AUTO) 8.4 % (20.5-51.5); MEAN CORPUSCULAR HEMOGLOBIN 23 pg (27-31); MEAN CORPUSCULAR HGB CONC 32 % (32-36); MEAN CORPUSCULAR VOLUME 71 fL (79.0-98.0); MONOCYTES # (AUTO) 0.9 K/uL (0.0-1.0); MONOCYTES % (AUTO) 7.6 % (1.7-9.3); NEUTROPHILS # (AUTO) 9.3 K/uL (1.8-7.7); NEUTROPHILS % (AUTO) 81.1 % (40.0-70.0); PLATELET COUNT (AUTO) 628 K/uL (130-430); RED BLOOD CELL COUNT(AUTO) 6.57 MIL/uL (4.2-6.2); RED CELL DISTRIBUTION WIDTH 25.2 % (9.0-15.0); WHITE BLOOD COUNT (AUTO) 11.5 K/uL (4.8-10.8)
[2024-02-12 08:28] LABS: ALANINE AMINOTRANSFERASE 115 U/L (12-78); ALBUMIN 2.3 g/dL (3.4-4.8); ANION GAP 9 (5-15); ASPARTATE AMINOTRANSFERASE 61 U/L (10-37); CALCIUM 8.3 mg/dL (8.4-11.0); CARBON DIOXIDE 26 mmol/L (23-29); CHLORIDE 103 mmol/L (98-107); CREATININE 1.32 mg/dL (0.55-1.30); GLUCOSE 89 mg/dL (74-106); PHOSPHORUS 3.7 mg/dL (2.7-4.5); POTASSIUM 3.2 mmol/L (3.5-5.1); SODIUM SERUM 138 mmol/L (136-145); TOTAL BILIRUBIN 1.1 mg/dL (0.0-1.0); TOTAL PROTEIN, SERUM 6.1 g/dL (6.4-8.3); UREA NITROGEN, BLOOD 24 mg/dL (8-21)
[2024-02-12 09:30] VITALS: O2SAT 95
[2024-02-12 12:57] VITALS: BP_SYST 119; PULSE 52; RESP 15; TEMP 97.8; O2SAT 97
[2024-02-12 16:23] VITALS: BP_SYST 111; PULSE 55; RESP 15; TEMP 97.7; O2SAT 98
[2024-02-12 20:00] VITALS: BP_SYST 144; PULSE 55; RESP 16; TEMP 97; O2SAT 94
[2024-02-12] MEDS: POTASSIUM CHLORIDE 20 MEQ/PKT PACKET PO ONE (22:04)
[2024-02-13] VITALS: BP_SYST 142; PULSE 18; RESP 16; TEMP 97.1; O2SAT 96
[2024-02-13 06:04] LABS: ALANINE AMINOTRANSFERASE 155 U/L (12-78); ALBUMIN 2.5 g/dL (3.4-4.8); ANION GAP 9 (5-15); CALCIUM 8.7 mg/dL (8.4-11.0); CARBON DIOXIDE 26 mmol/L (23-29); CHLORIDE 103 mmol/L (98-107); GLUCOSE 86 mg/dL (74-106); POTASSIUM 3.6 mmol/L (3.5-5.1); SODIUM SERUM 138 mmol/L (136-145); TOTAL BILIRUBIN 1.1 mg/dL (0.0-1.0); TOTAL PROTEIN, SERUM 6.5 g/dL (6.4-8.3); UREA NITROGEN, BLOOD 22 mg/dL (8-21)
[2024-02-13 06:06] LABS: BASOPHILS # (AUTO) 0.1 K/uL (0.0-0.2); BASOPHILS % (AUTO) 0.7 % (0.0-2.0); EOSINOPHILS # (AUTO) 0.2 K/uL (0.0-0.4); EOSINOPHILS % (AUTO) 1.3 % (0.0-4.0); HEMATOCRIT 48.5 % (36-54); HEMOGLOBIN 15.3 g/dL (14.0-18.0); LYMPHOCYTES # (AUTO) 1.4 K/uL (1.0-5.5); LYMPHOCYTES % (AUTO) 10.9 % (20.5-51.5); MEAN CORPUSCULAR HEMOGLOBIN 23 pg (27-31); MEAN CORPUSCULAR HGB CONC 32 % (32-36); MEAN CORPUSCULAR VOLUME 71 fL (79.0-98.0); MONOCYTES # (AUTO) 0.8 K/uL (0.0-1.0); MONOCYTES % (AUTO) 6.6 % (1.7-9.3); NEUTROPHILS # (AUTO) 10.4 K/uL (1.8-7.7); NEUTROPHILS % (AUTO) 80.5 % (40.0-70.0); PLATELET COUNT (AUTO) 714 K/uL (130-430); RED BLOOD CELL COUNT(AUTO) 6.79 MIL/uL (4.2-6.2); RED CELL DISTRIBUTION WIDTH 24.3 % (9.0-15.0); WHITE BLOOD COUNT (AUTO) 12.9 K/uL (4.8-10.8)
[2024-02-13 07:53] LABS: ASPARTATE AMINOTRANSFERASE 94 U/L (10-37)
[2024-02-13 08:15] VITALS: O2SAT 99
[2024-02-13] MEDS: ATENOLOL 50 MG TABLET (TENORMIN) PO SCH (09:00)
[2024-02-13 11:36] VITALS: BP_SYST 120; PULSE 48; RESP 17; TEMP 97.4; O2SAT 94
[2024-02-13] MEDS: AZITHROMYCIN 500 MG in NS 250 ML IV SCH (14:39)
[2024-02-13 16:34] VITALS: BP_SYST 117; PULSE 51; RESP 18; TEMP 97.5; O2SAT 95
[2024-02-13 20:00] VITALS: BP_SYST 148; PULSE 58; RESP 18; TEMP 97.5; O2SAT 93
[2024-02-14] VITALS (7 sets, daily range): BP systolic 125–148; PULSE 50–58; RESP 15–19; TEMP 96.9–98.2; O2SAT 93–99
[2024-02-14 07:20] LABS: BASOPHILS # (AUTO) 0.1 K/uL (0.0-0.2); BASOPHILS % (AUTO) 0.7 % (0.0-2.0); EOSINOPHILS # (AUTO) 0.1 K/uL (0.0-0.4); EOSINOPHILS % (AUTO) 0.5 % (0.0-4.0); HEMATOCRIT 48.8 % (36-54); HEMOGLOBIN 15.5 g/dL (14.0-18.0); LYMPHOCYTES % (AUTO) 6.5 % (20.5-51.5); MEAN CORPUSCULAR HEMOGLOBIN 23 pg (27-31); MEAN CORPUSCULAR HGB CONC 32 % (32-36); MEAN CORPUSCULAR VOLUME 71 fL (79.0-98.0); MONOCYTES % (AUTO) 6.6 % (1.7-9.3); NEUTROPHILS # (AUTO) 13.1 K/uL (1.8-7.7); NEUTROPHILS % (AUTO) 85.7 % (40.0-70.0); PLATELET COUNT (AUTO) 687 K/uL (130-430); RED BLOOD CELL COUNT(AUTO) 6.84 MIL/uL (4.2-6.2); RED CELL DISTRIBUTION WIDTH 25.1 % (9.0-15.0); WHITE BLOOD COUNT (AUTO) 15.3 K/uL (4.8-10.8)
[2024-02-14 08:00] LABS: ALANINE AMINOTRANSFERASE 108 U/L (12-78); ALBUMIN 2.4 g/dL (3.4-4.8); ANION GAP 10 (5-15); ASPARTATE AMINOTRANSFERASE 48 U/L (10-37); CALCIUM 8.6 mg/dL (8.4-11.0); CARBON DIOXIDE 25 mmol/L (23-29); CHLORIDE 104 mmol/L (98-107); CREATININE 1.13 mg/dL (0.55-1.30); GLUCOSE 74 mg/dL (74-106); POTASSIUM 3.4 mmol/L (3.5-5.1); SODIUM SERUM 139 mmol/L (136-145); TOTAL BILIRUBIN 1.1 mg/dL (0.0-1.0); TOTAL PROTEIN, SERUM 6.2 g/dL (6.4-8.3); UREA NITROGEN, BLOOD 19 mg/dL (8-21)
[2024-02-14] MEDS ORDERED: LEVO-62 PO (17:41)
[2024-02-15 05:09] LABS: HEPATITIS A AB, IgM Negative (Negative); HEPATITIS B CORE AB, IgM Negative (Negative); HEPATITIS B SURFACE AG Negative (Negative); HEPATITIS C VIRUS AB Non Reactive (Non Reactive)
== END 2024-02-14 16:00 | disposition left against medical advice (07) | DRG 871 ==
LOC: SED 15:22 → STU 17:59 → SMU 02-09 11:38
PROVIDERS: ADMIT Preventive Medicine Preventive Medicine/Occupational Environmental Medicine; ATTEND Specialist
DX: A41.9 Sepsis, unspecified organism (principal); E43 Unspecified severe protein-calorie malnutrition; S22.028A Other fracture of second thoracic vertebra, initial encounter for closed fracture; N39.0 Urinary tract infection, site not specified; N17.9 Acute kidney failure, unspecified; N18.31 Chronic kidney disease, stage 3a; D75.839 Thrombocytosis, unspecified; E78.5 Hyperlipidemia, unspecified; E83.41 Hypermagnesemia; E87.5 Hyperkalemia; E87.6 Hypokalemia; E88.09 Other disorders of plasma-protein metabolism, not elsewhere classified; G89.4 Chronic pain syndrome; I13.10 Hypertensive heart and chronic kidney disease without heart failure, with stage 1 through stage 4 chronic kidney disease, or unspecified chronic kidney disease; I25.10 Atherosclerotic heart disease of native coronary artery without angina pectoris; I48.0 Paroxysmal atrial fibrillation; J44.9 Chronic obstructive pulmonary disease, unspecified; K21.9 Gastro-esophageal reflux disease without esophagitis; M48.02 Spinal stenosis, cervical region; G50.0 Trigeminal neuralgia; M92.521 Juvenile osteochondrosis of tibia tubercle, right leg; R73.9 Hyperglycemia, unspecified; Z68.28 Body mass index [BMI] 28.0-28.9, adult; W18.39XA Other fall on same level, initial encounter; Z98.61 Coronary angioplasty status; Z79.899 Other long term (current) drug therapy; Y93.89 Activity, other specified; Y92.89 Other specified places as the place of occurrence of the external cause; Y99.8 Other external cause status; M50.30 Other cervical disc degeneration, unspecified cervical region
CPT/HCPCS: 36415; 70450-TC; 71045; 72125-TC; 72128; 73564; 76705; 80048; 80053; 80074; 81000; 81001; 81015; 82550; 83605; 83735; 83880; 84100; 84484; 85007; 85025; 85027; 85379; 85610; 85651; 85730; 87040; 87086; 93005; 94070; 94760; 96365; 97110-GP; 97116-GP; 97530-GP; 99285; G0378; J0456; J0696; J7050